=== PATIENT | female | born 1965 | race Hispanic/Latino ===

== ENCOUNTER 2018-01-04 14:13 | Emergency (ER) | payer OTHER, SELFPAY ==
[2018-01-04] MEDS ORDERED: Ketorolac Tromethamine 60 MG/2 ML VIAL ONE (15:33)
--- NOTE | 2018-01-04 17:01 | CT ---
CT CERVICAL SPINE WITHOUT CONTRAST: HISTORY: Pain. COMPARISON: None. TECHNIQUE: A CT cervical spine is performed without contrast. Coronal and sagittal reformatted images are submi tted for interpretation. FINDINGS: Cervical spine vertebral body height is maintained. No fracture. Straightening of the normal cervic al lordosis may be due to patient position, muscle spasm, or cervical collar. The current study does not assess for ligamentous injury. No craniocervical dissociation. The lateral masses of C1 and C2 articulate appropriately. Intact od ontoid process. Soft tissue neck structures are unremarkable. The upper mediastinum and lung apices are unremarkable . There is no prevertebral soft tissue swelling. Varying degrees of central canal stenosis and foraminal narrowing on the basis of degenerative change . There is mild irregularity involving the superior endplate of C7. Chronic changes are suspected with likely possible minimal compression deformity versus Schmorl's node. IMPRESSION: 1. No fracture. 2. Straightening of normal cervical lordosis, as above. If there is concern for ligamentous injury, consider MRI. POS: [facility]
== END 2018-01-04 16:12 | disposition home or self-care (01) ==
LOC: ERS 14:13
DX: S16.1XXA Strain of muscle, fascia and tendon at neck level, initial encounter (principal); J45.909 Unspecified asthma, uncomplicated; F41.9 Anxiety disorder, unspecified; Z79.899 Other long term (current) drug therapy; V49.20XA Unspecified car occupant injured in collision with unspecified motor vehicles in nontraffic accident, initial encounter
CPT/HCPCS: 72125; 96372; J1885